=== PATIENT | female | born 1965 | race Caucasian/White ===

== ENCOUNTER → 2017-01-30 | Outpatient (CLI) | payer OTHER ==
[~2017-01-30] MED LIST: AMIODARONE HCL200 MG PO; ANTIBIOTIC O500 U/GM T; ASPIRIN ADULT L81 M2 PO; BIAXIN500 MG PO; BONINE25 M1 PO; CEPHALEXIN500 M1 PO; COLACE100 MG PO; FLONASE 0.05% 121 EA NAS; HYDROCODONE BIT1 T11 PO; IBUPROFEN600 MG PO; IRON325 M2 PO; LASIX40 MG PO; LEVAQUIN750 MG PO; METOPROLOL25 MG PO; MOTRIN600 MG PO; MOTRIN800 MG PO; NAPROSYN500 MG PO; NATURE'S BLEND F1 MG PO; NICODERM C14 MG/24 H TD; NKHM; OXYCODONE5 M1 PO; POTASSIUM CHLO20 MEQ PO; PRAVACHOL20 MG PO; PROTONIX40 MG PO; Ranitidine Hyd150 MG PO; SYNTHROID25 MCG PO; Synthroid,Lev100 MCG PO; VICODIN 500 MG-1 TAB PO; VITAMIN D-32000 UNIT PO; ZANTAC 150150 MG PO; ZITHROMAX Z PA250 MG PO; ZOFRAN ODT4 MG SL
[2017-01-30 11:18] LABS: ALKALINE PHOSPHATASE 67 U/L (45-117); BILIRUBIN, DIRECT < 0.1 mg/dL (0.0-0.2); BILIRUBIN, TOTAL 0.2 mg/dl (0.2-1.0); BUN 10 mg/dl (7-24); CARBON DIOXIDE 28 mmol/L (21-32); CHLORIDE 105 mmol/L (98-107); EST GLOM FILT AFRICAN AMERICAN > 60 ml/min; FREE THYROXIN INDEX/T7 4.5 (1.5-5.4); GLUCOSE 88 mg/dL (65-99); POTASSIUM 4.4 mmol/L (3.5-5.1); SGOT/AST 15 IU/L (3-35); SGPT/ALT 20 U/L (12-78); SODIUM 142 mmol/L (136-145); T3 UPTAKE 35 % (31-39); THYROXINE (T4) TOTAL 12.9 ug/dl (4.8-13.9); TOTAL PROTEIN 7.4 gm/dL (6.4-8.2)
== END | disposition home or self-care (01) ==
LOC: LAB 10:00
PROVIDERS: Internal Medicine Cardiovascular Disease
DX: Z79.899 Other long term (current) drug therapy (principal)

== ENCOUNTER → 2017-01-31 | Outpatient (CLI) | payer OTHER ==
--- NOTE | ~2017-01-31 | PF ---
[place], [place] PULMONARY FUNCTION TEST [id number] UN[facility] #: [id number] ROOM: DOCTOR: TANGELA MIRZA MD,GRZEGORZ BIRTHDATE: [birth year] DOS: 01/31/2017 ORDERED BY: Dr. Ruiz. HISTORY: The patient reported as 52-year-old female, height of 67 inches, weight of 192 pounds with symptoms of shortness of breath with exertion and rare wheezing. The patient was noted past tobacco use, half a pack of cigarettes per day for 27 years. Smoking cessation has been noted about 1 year ago. The patient's testing was done for amiodarone therapy assessment. SPIROMETRY: The FVC of patient noted as 2.84 liters, 74% predicted value, mildly decreased without significant postbronchodilator improvement. The FEV1 was noted 2.36 liters, 79% of predicted value, mildly decreased with 12% improvement occurred postbronchodilator with significant partial improvement in the FEV1. Ratio of FEV1/FVC was recorded 83%. Flow volume loop was suggestive of mild reversible obstructive airway pattern. The patient's lung volumes, thoracic gas volume recorded 80%, residual volume 101%, total lung capacity 96%. The lung volumes were noted normal. The patient lung diffusion was noted moderately decreased for this patient, moderate to severely decreased at 47% without correction of carbon monoxide or hemoglobin values. The patient's airway resistance and passive conductance were noted normal with partial improvement occurred post-bronchodilator test. FINAL IMPRESSION: 1. Evidence of mild reversible obstructive lung disease consistent with bronchial asthma. 2. Severe reduction in lung diffusion. The patient to be correlated with patient's clinical history, hemoglobin value and radiology data. GRZEGORZ HONEYCUTT MD CM:PFREPORT:PULMONARY FUNCTION TEST [id number] GRZEGORZ MIRZA MD
== END | disposition home or self-care (01) ==
LOC: CP 10:11
DX: R06.02 Shortness of breath (principal); I10 Essential (primary) hypertension; I25.10 Atherosclerotic heart disease of native coronary artery without angina pectoris; Z87.891 Personal history of nicotine dependence; Z79.899 Other long term (current) drug therapy

== ENCOUNTER → 2017-05-14 | Outpatient (CLI) | payer OTHER | END | disposition home or self-care (01) | LOC: CARD 08:56 | DX: R00.2 Palpitations (principal) ==

== ENCOUNTER → 2017-06-12 | Outpatient (CLI) | payer OTHER | END | disposition home or self-care (01) | LOC: US 13:30 | DX: E04.2 Nontoxic multinodular goiter (principal) ==

== ENCOUNTER → 2017-09-26 | Outpatient (CLI) | payer OTHER | END | disposition home or self-care (01) | LOC: RAD 07:45 | DX: R13.13 Dysphagia, pharyngeal phase (principal); Z95.1 Presence of aortocoronary bypass graft ==

== ENCOUNTER → 2017-11-25 | Outpatient (CLI) | payer OTHER | END | disposition home or self-care (01) | LOC: US 10:19 | DX: E04.2 Nontoxic multinodular goiter (principal) ==

== ENCOUNTER → 2018-01-21 | Outpatient (CLI) | payer OTHER | END | disposition home or self-care (01) | LOC: MAMMO 07:21 | DX: Z12.31 Encounter for screening mammogram for malignant neoplasm of breast (principal) ==

== ENCOUNTER 2018-06-08 05:00 | Emergency (ER) | payer OTHER ==
[~2018-06-08] VITALS: Ht 170.1 cm; Wt 78.5 kg
--- NOTE | ~2018-06-08 | EKG ---
[place], [place] ELECTROCARDIOGRAM REPORT NAME: YFN COSTA UNIT #: [id number] ROOM: DOCTOR: EPIPHANY DRAFT REPORT BIRTHDATE: [birth year] [facility] Test Date: 2018-06-08 Test Time: 05:52:59 Pat Name: YFN COSTA Department: Room: Gender: F [employer]: : [id number] Requested By: SAMM AZUL Order Number: [id number] Reading MD: Pedro Newton MD Measurements Intervals [place] Rate: 69 P: 27 AL: 144 QRS: -13 QRSD: 88 T: 11 QT: 455 QTc: 488 Interpretive Statements Sinus rhythm Inferior infarct, old Anterolateral infarct, age indeterminate Electronically Signed On 06-08-2018 19:19:01 PDT by Pedro Newton MD CM:EKGRPT:ELECTROCARDIOGRAM REPORT [id number] SAMM FREITAS DRAFT REPORT SAMM AZUL DO
[2018-06-08 06:31] LABS: BASO % 0.3 % (0.0-1.0); EOS % 0.5 % (1.0-4.0); HEMOGLOBIN 12.3 g/dl (12.0-16.0); LYMPH # 1.5 10*3/uL (1.3-4.4); LYMPH % 18.6 % (27.0-41.0); MEAN CELL VOLUME 87.2 fl (81.0-99.0); MEAN CORPUSCULAR HGB 28.2 pg (27.0-31.0); MEAN CORPUSCULAR HGB CONC 32.4 g/dl (33.0-37.0); MEAN PLATELET VOLUME 10.7 fl (9.6-12.3); MONO # 0.6 10*3/uL (0.1-1.0); MONO % 8.2 % (3.0-9.0); NEUT # 5.6 10*3/uL (2.3-7.9); PLATELET COUNT AUTOMATED 197 10*3/uL (130-400); RED BLOOD COUNT 4.36 10*6/uL (4.10-5.10); RED CELL DISTRI WIDTH 13.2 % (0-14.5); WHITE BLOOD COUNT 7.8 10*3/uL (4.8-10.8)
[2018-06-08 06:40] LABS: ACT PARTIAL THROMBO TIME 25.3 SECONDS (20.8-31.5)
[2018-06-08 06:55] LABS: ALBUMIN 4.2 gm/dl (3.1-4.5); ALKALINE PHOSPHATASE 87 U/L (45-117); BUN 10 mg/dl (7-24); CHLORIDE 108 mmol/L (98-107); CREATININE 0.78 mg/dL (0.55-1.02); POTASSIUM 3.5 mmol/L (3.5-5.1); SGOT/AST 11 IU/L (3-35); SGPT/ALT 17 U/L (12-78); SODIUM 143 mmol/L (136-145); TOTAL PROTEIN 7.8 gm/dL (6.4-8.2)
[2018-06-08 06:58] LABS: TROPONIN I < 0.015 ng/ml (<0.045)
== END 2018-06-08 08:30 | disposition home or self-care (01) ==
LOC: ED 05:00
PROVIDERS: Student in an Organized Health Care Education/Training Program
DX: R07.89 Other chest pain (principal); I51.9 Heart disease, unspecified; Z90.710 Acquired absence of both cervix and uterus; Z79.899 Other long term (current) drug therapy; Z79.82 Long term (current) use of aspirin; Z88.1 Allergy status to other antibiotic agents

== ENCOUNTER → 2019-10-05 | Outpatient (CLI) | payer OTHER | END | disposition home or self-care (01) | LOC: RAD 09-30 08:00 | DX: K44.9 Diaphragmatic hernia without obstruction or gangrene (principal) ==

== ENCOUNTER → 2019-12-28 | Outpatient (CLI) | payer OTHER | LOC: US 12:30 | DX: I65.23 Occlusion and stenosis of bilateral carotid arteries (principal); I25.10 Atherosclerotic heart disease of native coronary artery without angina pectoris; I10 Essential (primary) hypertension; Z98.890 Other specified postprocedural states ==

== ENCOUNTER 2020-02-10 15:58 | Emergency (ER) | payer OTHER ==
[~2020-02-10] VITALS: Ht 170.1 cm; Wt 79.8 kg
[2020-02-10] MEDS ORDERED: LOSARTAN POTASS50 M1 PO (16:19)
[2020-02-10] MEDS ORDERED: CARVEDILOL6.25 MG PO (16:19)
[2020-02-10] MEDS ORDERED: OMEPRAZOLE40 MG PO (16:20)
[2020-02-10 16:52] LABS: BILIRUBIN NEGATIVE (NEGATIVE); BLOOD 1+ (NEGATIVE); CLARITY CLEAR (CLEAR); COLOR STRAW (YELLOW); GLUCOSE NEGATIVE (NEGATIVE); KETONE NEGATIVE (NEGATIVE); LEUKO ESTERASE 3+ (NEGATIVE); NITRITE NEGATIVE (NEGATIVE); PH 7.5 (5.0-9.0); SPECIFIC GRAVITY 1.005 (1.005-1.030); UROBILINOGEN 0.2 E.U./dl (0.2-1.0)
[2020-02-10 16:57] LABS: BACTERIA TRACE; WBC 31-40 wbc/hpf (0-5)
[2020-02-10 17:03] LABS: BASO % 0.3 % (0.0-1.0); EOS % 0.4 % (1.0-4.0); HEMATOCRIT 37.2 % (37.0-47.0); HEMOGLOBIN 12.2 g/dl (12.0-16.0); LYMPH % 22.5 % (27.0-41.0); MEAN CELL VOLUME 87.1 fl (81.0-99.0); MEAN CORPUSCULAR HGB 28.6 pg (27.0-31.0); MEAN CORPUSCULAR HGB CONC 32.8 g/dl (33.0-37.0); MEAN PLATELET VOLUME 10.3 fl (9.6-12.3); MONO # 0.8 10*3/uL (0.1-1.0); MONO % 8.6 % (3.0-9.0); NEUT # 6.1 10*3/uL (2.3-7.9); PLATELET COUNT AUTOMATED 253 10*3/uL (130-400); RED BLOOD COUNT 4.27 10*6/uL (4.10-5.10); RED CELL DISTRI WIDTH 13.2 % (0-14.5)
[2020-02-10 17:17] LABS: ALBUMIN 4.3 gm/dl (3.1-4.5); ALKALINE PHOSPHATASE 99 U/L (45-117); BUN 11 mg/dl (7-24); CHLORIDE 105 mmol/L (98-107); CREATININE 0.79 mg/dL (0.55-1.02); POTASSIUM 3.5 mmol/L (3.5-5.1); SGOT/AST 18 IU/L (3-35); SGPT/ALT 25 U/L (12-78); SODIUM 138 mmol/L (136-145); TOTAL PROTEIN 8.4 gm/dL (6.4-8.2)
[2020-02-10] MEDS ORDERED: MACROBID100 M1 PO (17:22)
[2020-02-10] MEDS ORDERED: PYRIDIUM100 MG PO (17:22)
== END 2020-02-10 17:29 | disposition home or self-care (01) ==
LOC: ED 15:58
PROVIDERS: Nurse Practitioner Family
DX: N39.0 Urinary tract infection, site not specified (principal); I25.2 Old myocardial infarction; I10 Essential (primary) hypertension; K21.9 Gastro-esophageal reflux disease without esophagitis; E78.00 Pure hypercholesterolemia, unspecified; M19.90 Unspecified osteoarthritis, unspecified site; Z90.710 Acquired absence of both cervix and uterus; Z88.8 Allergy status to other drugs, medicaments and biological substances; Z88.1 Allergy status to other antibiotic agents; Z79.899 Other long term (current) drug therapy; Z79.82 Long term (current) use of aspirin; Z87.891 Personal history of nicotine dependence

== ENCOUNTER 2020-05-13 16:54 | Emergency (ER) | payer OTHER ==
[~2020-05-13] VITALS: Ht 170.1 cm; Wt 83.0 kg
[~2020-05-13 16:54] MED LIST changes: +CARVEDILOL6.25 MG PO; +LOSARTAN POTASS50 M1 PO; +MACROBID100 M1 PO; +OMEPRAZOLE40 MG PO; +PYRIDIUM100 MG PO
== END 2020-05-13 18:20 | disposition home or self-care (01) ==
LOC: ED 16:54
DX: S00.03XA Contusion of scalp, initial encounter (principal); I10 Essential (primary) hypertension; I25.2 Old myocardial infarction; K21.9 Gastro-esophageal reflux disease without esophagitis; E78.00 Pure hypercholesterolemia, unspecified; Z88.8 Allergy status to other drugs, medicaments and biological substances; Z79.899 Other long term (current) drug therapy; X58.XXXA Exposure to other specified factors, initial encounter; Y93.89 Activity, other specified; Y92.89 Other specified places as the place of occurrence of the external cause; Y99.8 Other external cause status

== ENCOUNTER → 2020-11-20 | Outpatient (CLI) | payer OTHER ==
[2020-11-20 10:39] LABS: FREE T4 1.3 ng/dl (0.76-1.46)
[2020-11-20 10:45] LABS: THYROID STIM HORMONE (HS) 0.051 uIU/ml (0.358-4.75)
== END | disposition home or self-care (01) ==
LOC: LAB 09:48
PROVIDERS: ATTEND Internal Medicine Nephrology
DX: M19.049 Primary osteoarthritis, unspecified hand (principal); E78.5 Hyperlipidemia, unspecified; E03.9 Hypothyroidism, unspecified

== ENCOUNTER → 2021-02-21 | Outpatient (CLI) | payer OTHER ==
[~2021-02-21] MED LIST changes: +ENTRESTO 24 MG1 EACH PO; +LEXAPRO10 MG PO; +MULTIVITAMINS1 EAC6 PO; +VITAMIN D3125 MC1 PO
[2021-02-21 09:10] LABS: FREE T4 1.26 ng/dl (0.76-1.46)
[2021-02-21 09:16] LABS: THYROID STIM HORMONE (HS) 0.052 uIU/ml (0.358-4.75)
== END | disposition home or self-care (01) ==
LOC: MAMMO 02-15 08:30 → LAB 07:55 → MAMMO 08:00
PROVIDERS: ATTEND Internal Medicine
DX: Z12.31 Encounter for screening mammogram for malignant neoplasm of breast (principal); E03.9 Hypothyroidism, unspecified; N64.89 Other specified disorders of breast

== ENCOUNTER 2021-02-25 04:05 | Emergency (ER) | payer OTHER ==
[~2021-02-25] VITALS: Ht 337.8 cm; Wt 80.7 kg
[~2021-02-25 04:05] MED LIST changes: -ENTRESTO 24 MG1 EACH PO; -LEXAPRO10 MG PO; -MULTIVITAMINS1 EAC6 PO; -VITAMIN D3125 MC1 PO
[2021-02-25] MEDS ORDERED: MULTIVITAMINS1 EAC6 PO (04:25)
[2021-02-25] MEDS ORDERED: VITAMIN D3125 MC1 PO (04:25)
[2021-02-25] MEDS ORDERED: LEXAPRO10 MG PO (04:25)
[2021-02-25] MEDS ORDERED: ENTRESTO 24 MG1 EACH PO (04:26)
[2021-02-25 05:52] LABS: ALBUMIN 3.7 gm/dl (3.1-4.5); ALKALINE PHOSPHATASE 97 U/L (45-117); BUN 10 mg/dl (7-24); CHLORIDE 108 mmol/L (98-107); CREATININE 0.65 mg/dL (0.55-1.02); POTASSIUM 3.8 mmol/L (3.5-5.1); SGOT/AST 12 IU/L (3-35); SGPT/ALT 20 U/L (12-78); SODIUM 140 mmol/L (136-145); TOTAL PROTEIN 7.5 gm/dL (6.4-8.2)
[2021-02-25 05:52] LABS: BILIRUBIN Negative (Negative); BLOOD Negative (Negative); CLARITY Clear (Clear); COLOR Yellow (Yellow); GLUCOSE Negative (Negative); KETONE Negative (Negative); LEUKO ESTERASE 2+ (Negative); NITRITE Negative (Negative); SPECIFIC GRAVITY <= 1.005 (1.001-1.030)
[2021-02-25 05:54] LABS: TROPONIN I < 0.015 ng/ml (<0.045)
[2021-02-25 05:55] LABS: BASO % 0.2 % (0.0-1.0); EOS % 0.3 % (1.0-4.0); HEMATOCRIT 35.1 % (37.0-47.0); LYMPH # 1.3 10*3/uL (1.3-4.4); LYMPH % 19.8 % (27.0-41.0); MEAN CELL VOLUME 85.4 fl (81.0-99.0); MEAN CORPUSCULAR HGB 28.2 pg (27.0-31.0); MEAN PLATELET VOLUME 10.5 fl (9.6-12.3); MONO # 0.5 10*3/uL (0.1-1.0); MONO % 8.4 % (3.0-9.0); NEUT # 4.4 10*3/uL (2.3-7.9); PLATELET COUNT AUTOMATED 221 10*3/uL (130-400); RED BLOOD COUNT 4.11 10*6/uL (4.10-5.10); RED CELL DISTRI WIDTH 12.6 % (0-14.5); WHITE BLOOD COUNT 6.3 10*3/uL (4.8-10.8)
[2021-02-25 06:16] LABS: BACTERIA 1+
== END 2021-02-25 08:19 | disposition home or self-care (01) ==
LOC: ED 04:05
PROVIDERS: Emergency Medicine
DX: R42 Dizziness and giddiness (principal); T43.225A Adverse effect of selective serotonin reuptake inhibitors, initial encounter; T46.5X5A Adverse effect of other antihypertensive drugs, initial encounter; R53.83 Other fatigue; Z88.1 Allergy status to other antibiotic agents; Z79.82 Long term (current) use of aspirin; Z79.899 Other long term (current) drug therapy; Z98.61 Coronary angioplasty status; Z90.711 Acquired absence of uterus with remaining cervical stump; Y92.89 Other specified places as the place of occurrence of the external cause

== ENCOUNTER 2022-05-23 08:37 | Emergency (ER) | payer OTHER ==
[~2022-05-23] VITALS: Wt 77.1 kg
[~2022-05-23 08:37] MED LIST changes: +ENTRESTO 24 MG1 EACH PO; +LEXAPRO10 MG PO; +MULTIVITAMINS1 EAC6 PO; +VITAMIN D3125 MC1 PO
[2022-05-23] MEDS ORDERED: JARDIANCE10 MG PO (08:51)
[2022-05-23] MEDS ORDERED: ALDACTONE25 MG PO (08:51)
[2022-05-23] MEDS ORDERED: DOXYCYCLINE HY100 M3 PO (09:00)
== END 2022-05-23 09:09 | disposition home or self-care (01) ==
LOC: ED 08:37
DX: J01.90 Acute sinusitis, unspecified (principal); Z79.899 Other long term (current) drug therapy; Z79.82 Long term (current) use of aspirin; Z88.1 Allergy status to other antibiotic agents

== ENCOUNTER → 2022-10-16 | Outpatient (CLI) | payer OTHER ==
[~2022-10-16] MED LIST changes: +ALDACTONE25 MG PO; +DOXYCYCLINE HY100 M3 PO; +JARDIANCE10 MG PO
[2022-10-16 11:01] LABS: FREE T4 0.99 ng/dl (0.89-1.76); THYROID STIM HORMONE (HS) 0.956 uIU/ml (0.550-4.780)
== END | disposition home or self-care (01) ==
LOC: LAB 09:04 → MAMMO 09:30
PROVIDERS: ATTEND Internal Medicine
DX: Z12.31 Encounter for screening mammogram for malignant neoplasm of breast (principal); E78.5 Hyperlipidemia, unspecified; E03.9 Hypothyroidism, unspecified

== ENCOUNTER → 2022-11-15 | Outpatient (CLI) | payer OTHER | END | disposition home or self-care (01) | LOC: US 07:30 | PROVIDERS: ATTEND Internal Medicine | DX: R10.11 Right upper quadrant pain (principal) ==

== ENCOUNTER → 2023-04-17 | Outpatient (CLI) | payer OTHER ==
[2023-04-17 12:44] LABS: BASO % 0.3 % (0.0-1.0); EOS % 0.4 % (1.0-4.0); HEMATOCRIT 39.5 % (37.0-47.0); LYMPH # 1.8 10*3/uL (1.3-4.4); LYMPH % 26.2 % (27.0-41.0); MEAN CELL VOLUME 89.2 fl (81.0-99.0); MEAN CORPUSCULAR HGB 28.9 pg (27.0-31.0); MEAN CORPUSCULAR HGB CONC 32.4 g/dl (33.0-37.0); MEAN PLATELET VOLUME 10.1 fl (9.6-12.3); MONO # 0.5 10*3/uL (0.1-1.0); MONO % 7.6 % (3.0-9.0); NEUT # 4.4 10*3/uL (2.3-7.9); NEUT % 65.2 % (47.0-73.0); PLATELET COUNT AUTOMATED 242 10*3/uL (130-400); RED BLOOD COUNT 4.43 10*6/uL (4.10-5.10); RED CELL DISTRI WIDTH 14.3 % (0-14.5); WHITE BLOOD COUNT 6.8 10*3/uL (4.8-10.8)
[2023-04-17 13:35] LABS: ALKALINE PHOSPHATASE 82 U/L (46-116); BUN 11 mg/dl (9-23); CHLORIDE 105 mmol/L (98-107); FREE T4 0.85 ng/dl (0.89-1.76); POTASSIUM 3.9 mmol/L (3.4-5.1); SGPT/ALT 12 U/L (10-49); THYROID STIM HORMONE (HS) 4.153 uIU/ml (0.550-4.780); TOTAL PROTEIN 7.3 gm/dL (6.0-8.0)
== END | disposition home or self-care (01) ==
LOC: LAB 12:30
PROVIDERS: ATTEND Internal Medicine
DX: I25.10 Atherosclerotic heart disease of native coronary artery without angina pectoris (principal); R20.2 Paresthesia of skin

== ENCOUNTER → 2023-04-28 | Outpatient (CLI) | payer OTHER | END | disposition home or self-care (01) | LOC: CARD 08:00 | PROVIDERS: ATTEND Internal Medicine | DX: R00.1 Bradycardia, unspecified (principal); R20.2 Paresthesia of skin ==

== ENCOUNTER → 2023-05-12 | Outpatient (CLI) | payer OTHER | END | disposition home or self-care (01) | LOC: US 00:24 | PROVIDERS: ATTEND Internal Medicine | DX: E04.1 Nontoxic single thyroid nodule (principal) ==

== ENCOUNTER 2023-06-30 20:59 | Inpatient (IN) | payer OTHER ==
[~2023-06-30] VITALS: Ht 170.1 cm; Wt 90.3 kg
[2023-06-30 21:10] VITALS: BP 142/82
[2023-06-30 22:22] LABS: BASO % 0.3 % (0.0-1.0); EOS # 0.1 10*3/uL (0.0-0.4); EOS % 0.9 % (1.0-4.0); HEMATOCRIT 38.1 % (37.0-47.0); LYMPH # 2.2 10*3/uL (1.3-4.4); MEAN CORPUSCULAR HGB 29.6 pg (27.0-31.0); MEAN CORPUSCULAR HGB CONC 33.6 g/dl (33.0-37.0); MONO # 0.7 10*3/uL (0.1-1.0); MONO % 10.1 % (3.0-9.0); NEUT # 3.7 10*3/uL (2.3-7.9); NEUT % 55.4 % (47.0-73.0); PLATELET COUNT AUTOMATED 237 10*3/uL (130-400); RED BLOOD COUNT 4.33 10*6/uL (4.10-5.10); RED CELL DISTRI WIDTH 13.3 % (0-14.5); WHITE BLOOD COUNT 6.6 10*3/uL (4.8-10.8)
[2023-06-30 22:46] LABS: ALKALINE PHOSPHATASE 91 U/L (46-116); BUN 9 mg/dl (9-23); CHLORIDE 104 mmol/L (98-107); POTASSIUM 3.4 mmol/L (3.4-5.1); SGPT/ALT 10 U/L (10-49); TOTAL PROTEIN 6.9 gm/dL (6.0-8.0)
[2023-07-01] VITALS (7 sets, daily range): BP systolic 112–143; BP diastolic 66–85
[2023-07-01] MEDS ORDERED: LEVOTHYROXINE200 MC2 PO (02:01)
[2023-07-01] MEDS ORDERED: CYCLOBENZAPRINE10 MG PO (02:01)
[2023-07-01] MEDS ORDERED: CARVEDILOL12.5 MG PO (02:02)
[2023-07-01] MEDS ORDERED: PRAVASTATIN SOD20 MG PO (03:25)
[2023-07-01] MEDS ORDERED: ESCITALOPRAM OX10 MG PO (03:27)
[2023-07-02 00:10] VITALS: BP 132/78
[2023-07-02 08:00] VITALS: BP 129/76; BP 131/73
[2023-07-02 12:00] VITALS: BP 121/73
[2023-07-02] MEDS ORDERED: CEPHALEXIN500 M1 PO (14:03)
== END 2023-07-02 15:00 | disposition home or self-care (01) | DRG 603 ==
LOC: ED 20:59 → EDHOLD 07-01 01:34 → 4E 07-01 01:34
PROVIDERS: Emergency Medicine; ADMIT Internal Medicine; ATTEND Internal Medicine
DX: L03.213 Periorbital cellulitis (principal); I25.10 Atherosclerotic heart disease of native coronary artery without angina pectoris; E04.1 Nontoxic single thyroid nodule; E78.5 Hyperlipidemia, unspecified; E03.9 Hypothyroidism, unspecified; F32.A Depression, unspecified; K21.9 Gastro-esophageal reflux disease without esophagitis; I10 Essential (primary) hypertension; E55.9 Vitamin D deficiency, unspecified; Z88.0 Allergy status to penicillin; Z88.1 Allergy status to other antibiotic agents; Z79.899 Other long term (current) drug therapy; Z79.82 Long term (current) use of aspirin; Z95.1 Presence of aortocoronary bypass graft; Z90.710 Acquired absence of both cervix and uterus; Z83.3 Family history of diabetes mellitus; Z82.49 Family history of ischemic heart disease and other diseases of the circulatory system; Z82.3 Family history of stroke; Z87.440 Personal history of urinary (tract) infections

== ENCOUNTER 2024-02-18 17:31 | Emergency (ER) | payer OTHER ==
[~2024-02-18] VITALS: Ht 170.1 cm; Wt 81.2 kg
[~2024-02-18 17:31] MED LIST changes: +CARVEDILOL12.5 MG PO; +CYCLOBENZAPRINE10 MG PO; +ESCITALOPRAM OX10 MG PO; +LEVOTHYROXINE200 MC2 PO; +LISINOPRIL20 MG PO; +PRAVASTATIN SOD20 MG PO; +ZITHROMAX250 MG PO
[2024-02-18] MEDS ORDERED: FAMOTIDINE 50 ML IV ONE ×2 (18:15)
[2024-02-18] MEDS ORDERED: diphenhydrAMINE hydrochloride 50 MG/ML VIAL IV ONE (18:15)
[2024-02-18] MEDS ORDERED: SODIUM CHLORIDE 0.9% 1,000 ML IV ONE (18:15)
[2024-02-18] MEDS ORDERED: predniSONE 20 MG TAB PO ONE (19:30)
[2024-02-18] MEDS ORDERED: PREDNISONE20 M1 PO (19:32)
== END 2024-02-18 19:53 | disposition home or self-care (01) ==
LOC: ED 17:31
DX: L50.9 Urticaria, unspecified (principal); T78.40XA Allergy, unspecified, initial encounter; I25.10 Atherosclerotic heart disease of native coronary artery without angina pectoris; F32.A Depression, unspecified; K21.9 Gastro-esophageal reflux disease without esophagitis; E78.5 Hyperlipidemia, unspecified; I10 Essential (primary) hypertension; M19.90 Unspecified osteoarthritis, unspecified site; I25.2 Old myocardial infarction; E03.9 Hypothyroidism, unspecified; Z88.1 Allergy status to other antibiotic agents; Z98.890 Other specified postprocedural states; Z90.710 Acquired absence of both cervix and uterus; X58.XXXA Exposure to other specified factors, initial encounter

== ENCOUNTER → 2024-06-08 | Outpatient (CLI) | payer OTHER ==
[~2024-06-08] MED LIST changes: +PREDNISONE20 M1 PO
[2024-06-08 16:10] LABS: BASO % 0.4 % (0.0-1.0); EOS # 0.1 10*3/uL (0.0-0.4); EOS % 1.5 % (1.0-4.0); HEMATOCRIT 35.5 % (37.0-47.0); LYMPH # 1.9 10*3/uL (1.3-4.4); LYMPH % 27.7 % (27.0-41.0); MEAN CORPUSCULAR HGB 29.5 pg (27.0-31.0); MEAN CORPUSCULAR HGB CONC 32.4 g/dl (33.0-37.0); MEAN PLATELET VOLUME 9.8 fl (9.6-12.3); MONO # 0.7 10*3/uL (0.1-1.0); MONO % 10.7 % (3.0-9.0); NEUT # 4.1 10*3/uL (2.3-7.9); NEUT % 59.4 % (47.0-73.0); PLATELET COUNT AUTOMATED 230 10*3/uL (130-400); RED CELL DISTRI WIDTH 12.7 % (0-14.5); WHITE BLOOD COUNT 6.8 10*3/uL (4.8-10.8)
[2024-06-08 16:35] LABS: BUN 11 mg/dl (9-23); CHLORIDE 105 mmol/L (98-107); POTASSIUM 3.7 mmol/L (3.4-5.1)
== END | disposition home or self-care (01) ==
LOC: LAB 15:54
PROVIDERS: ATTEND Internal Medicine
DX: I25.10 Atherosclerotic heart disease of native coronary artery without angina pectoris (principal)

== ENCOUNTER 2024-08-03 11:24 | Emergency (ER) | payer OTHER ==
[~2024-08-03] VITALS: Ht 170.1 cm; Wt 78.5 kg
[2024-08-03 13:17] LABS: BASO % 0.4 % (0.0-1.0); EOS # 0.1 10*3/uL (0.0-0.4); EOS % 1.2 % (1.0-4.0); HEMATOCRIT 33.9 % (37.0-47.0); LYMPH # 1.5 10*3/uL (1.3-4.4); LYMPH % 29.3 % (27.0-41.0); MEAN CELL VOLUME 90.2 fl (81.0-99.0); MEAN CORPUSCULAR HGB 29.3 pg (27.0-31.0); MEAN CORPUSCULAR HGB CONC 32.4 g/dl (33.0-37.0); MEAN PLATELET VOLUME 10.2 fl (9.6-12.3); MONO # 0.6 10*3/uL (0.1-1.0); MONO % 12.2 % (3.0-9.0); NEUT # 2.9 10*3/uL (2.3-7.9); NEUT % 56.7 % (47.0-73.0); PLATELET COUNT AUTOMATED 218 10*3/uL (130-400); RED BLOOD COUNT 3.76 10*6/uL (4.10-5.10)
[2024-08-03 13:40] LABS: BUN 10 mg/dl (9-23); CHLORIDE 106 mmol/L (98-107); POTASSIUM 3.8 mmol/L (3.4-5.1)
[2024-08-03] MEDS ORDERED: VIBRAMYCIN100 MG PO (14:18)
== END 2024-08-03 14:26 | disposition home or self-care (01) ==
LOC: ED 11:24
PROVIDERS: Internal Medicine
DX: H00.033 Abscess of eyelid right eye, unspecified eyelid (principal); I10 Essential (primary) hypertension; K21.9 Gastro-esophageal reflux disease without esophagitis; M19.90 Unspecified osteoarthritis, unspecified site; Z88.1 Allergy status to other antibiotic agents; Z90.710 Acquired absence of both cervix and uterus; Z98.890 Other specified postprocedural states